=== PATIENT | male | born 2000 | race Two or more races ===

== ENCOUNTER → 2020-02-23 | Outpatient (REF) | payer OTHER ==
[~2020-02-23] MED LIST: DOXY-350 PO
[2020-02-23 15:50] LABS: BASO % 0.3 % (0.0-1.0); EOS # 0.1 10^3/uL (0.0-0.5); EOS % 0.4 % (0.0-3.0); HEMATOCRIT 49.6 % (42.0-52.0); HEMOGLOBIN 16.5 g/dl (13.5-17.5); LYMPH # 2.1 10^3/uL (1.5-5.0); LYMPH % 16.8 % (24.0-44.0); MEAN CORPUSCULAR HEMOGLOBIN 28.5 pg (27.0-33.0); MEAN CORPUSCULAR HGB CONC 33.3 g/dl (32.0-36.5); MEAN CORPUSCULAR VOLUME 85.7 fl (80.0-96.0); MONO # 0.7 10^3/uL (0.0-0.8); MONO % 5.2 % (0.0-5.0); NEUTROPHILS # 9.7 10^3/uL (1.5-8.5); NEUTROPHILS % 76.7 % (36.0-66.0); PLATELET COUNT, AUTOMATED 331 10^3/uL (150-450); RED BLOOD COUNT 5.79 10^6/uL (4.30-6.10); WHITE BLOOD COUNT 12.6 10^3/uL (4.0-10.0)
[2020-02-23 16:13] LABS: ERYTHROCYTE SEDIMENTATION RATE 5 mm/hr (0-15)
== END ==
LOC: M SFHCPLAZ 13:17
PROVIDERS: ATTEND Internal Medicine Infectious Disease
DX: M86.669 Other chronic osteomyelitis, unspecified tibia and fibula (principal)
CPT/HCPCS: 36415; 85025; 85652; 86140; G0463

== ENCOUNTER 2020-03-13 15:56 | Emergency (ER) | payer OTHER ==
[~2020-03-13] VITALS: Ht 170.2 cm; Wt 85.9 kg
[2020-03-13] MEDS ORDERED: TETRACAINE 0.5% OPHTH SOLN 4ML OU ONE (17:00)
[2020-03-13] MEDS ORDERED: CYCLOPENTOLATE 1% OPHTH SOLN 2 ML BTL OU ONE (17:00)
[2020-03-13] MEDS ORDERED: DOXY-350 PO (17:51)
[2020-03-13 18:04] VITALS: BP 123/80
== END 2020-03-13 18:05 | disposition home or self-care (01) ==
LOC: M ED 15:56
DX: H20.9 Unspecified iridocyclitis (principal); L73.9 Follicular disorder, unspecified

== ENCOUNTER → 2020-04-07 | Outpatient (CLI) | payer OTHER ==
[~2020-04-07] MED LIST changes: +LIDOCAINE 1% MDV 20ML VIAL As Ordered ONE
[2020-04-07 11:17] VITALS: BP 124/70
--- NOTE | 2020-04-07 16:57 | REP ---
INDICATION: LESION LT TIB/FIB CHRONIC OSTEO H/O MRSA. COMPARISON: None. TECHNIQUE: The procedure was performed under the personal supervision of Dr. Penaloza. The patient has a history of osteomyelitis in the anterior proximal left tibia. The patient also has a history of marrow edema in this area seen on a previous MRI dated 02/01/2020 from [facility]. The risks and benefits of the procedure were explained to the patient and informed consent was obtained. The left tibial lesion was localized using CT guidance. The skin was prepped and draped in a sterile fashion. 1% lidocaine was used as a local anesthetic. Using CT guidance a 17/18 gauge coaxial needle biopsy system was inserted and advanced into the lesion. Seven core biopsy samples as well as 1 aspirate were obtained and sent to the lab for analysis. The patient tolerated the procedure well and there were no immediate complications. After the appropriate amount to monitor convalescence the patient was discharged from the department. FINDINGS: None IMPRESSION: CT-guided left proximal anterior tibial biopsy. <Electronically signed by Cedrick Sarabia > 04/07/20 1600 <Electronically signed by Ruddy Penaloza > 04/07/20 [id number]
== END ==
LOC: M IRPRO 09:54
PROVIDERS: ATTEND Family Medicine
DX: M86.462 Chronic osteomyelitis with draining sinus, left tibia and fibula (principal); Z86.14 Personal history of Methicillin resistant Staphylococcus aureus infection